=== PATIENT | female | born 1980 | race Caucasian/White ===

== ENCOUNTER 2018-07-26 03:35 | Inpatient (IN) | payer SELFPAY ==
[2018-07-26] MEDS ORDERED: NORMAL SALINE 1000 ML 1,000 ML IV ONE (03:52)
[2018-07-26] MEDS ORDERED: METOCLOPRAMIDE HCL INJ/PF 10 MG/2 ML SDV IV ONE (03:52)
[2018-07-26] MEDS ORDERED: PANTOPRAZOLE SODIUM 40 MG VIAL IV ONE (03:54)
--- NOTE | 2018-07-26 03:58 | ER Document Report ---
ED General - General Chief Complaint: General Weakness Stated Complaint: WEAKNESS Time Seen by Provider: 07/26/18 03:45 Notes: Patient is a 37-year-old female that comes to the emergency department for chief complaint of vomiting, weakness, and lightheadedness when she stands up. She denies passing out. She states that for the past week she has been unable to eat or drink anything. She reports generalized upper abdominal pain. She denies vomiting blood, blood in stool, abnormal bowel movements. She denies fever. Patient states she has chronic vomiting, Galicia's esophagus, has a yearly endoscopy, is on Protonix 40 mg daily. Patient states she has vomited almost daily for at least the past 6 months. She has had a cholecystectomy. Other medical history includes hypertension, anxiety, hypothyroidism. She smokes, drinks alcohol, reports some marijuana use. TRAVEL OUTSIDE OF THE [place] IN LAST 30 DAYS: No Past Medical History - General Information source: Patient - Social History Smoking Status: Current Every Day Smoker Frequency of alcohol use: Occasional Drug Abuse: Marijuana Lives with: Family Family History: Reviewed & Not Pertinent - Past Medical History Cardiac Medical History: Reports: Hx Hypertension Endocrine Medical History: Reports: Hx Hypothyroidism GI Medical History: Reports: Hx Gastroesophageal Reflux Disease - Galicia's esophagus Psychiatric Medical History: Reports: Hx Anxiety Past Surgical History: Reports: Hx Cholecystectomy Review of Systems - Review of Systems Constitutional: No symptoms reported EENT: No symptoms reported Cardiovascular: No symptoms reported Respiratory: No symptoms reported Gastrointestinal: See HPI Genitourinary: No symptoms reported Female Genitourinary: No symptoms reported Musculoskeletal: No symptoms reported Skin: No symptoms reported Hematologic/Lymphatic: No symptoms reported Neurological/Psychological: No symptoms reported Physical Exam - Notes Notes: GENERAL: Slightly sluggish but does not appear to be in any distress, still responsive and answers questions appropriately. HEAD: Normocephalic, atraumatic. EYES: Pupils equal, round, and reactive to light. Extraocular movements intact. ENT: Oral mucosa dry, tongue midline. Oropharynx unremarkable. Airway patent. Nares patent, no nasal septal hematoma, TM's intact. NECK: Full range of motion. Supple. Trachea midline. LUNGS: Clear to auscultation bilaterally, no wheezes, rales, or rhonchi. No respiratory distress. HEART: Regular rate and rhythm. No murmur ABDOMEN: Mild generalized upper abdominal tenderness, lower abdomen is benign. No guarding, rigidity, distention, rebound tenderness. GENITOURINARY: Deferred EXTREMITIES: Moves all 4 extremities spontaneously. No edema, normal radial and dorsalis pedis pulses bilaterally. No cyanosis. BACK: no cervical, thoracic, lumbar midline tenderness. No saddle anesthesia, normal distal neurovascular exam. NEUROLOGICAL: Alert and oriented x3. Normal speech. [cranial nerves II through XII grossly intact]. PSYCH: Flat affect. SKIN: Warm, dry, normal turgor. No rashes or lesions noted. Course - Re-evaluation Re-evalutation: Part of the patient's care was performed during [facility] downtime. Patient was initially hypotensive and was started on IV fluids, afterwards I obtained laboratory workup including severe hypokalemia with potassium of 1.8, hypomagnesemia with magnesium of 1, hyponatremia with sodium of 125. CBC shows mild leukocytosis with elevation of neutrophils but no bandemia. Patient has unremarkable abdominal exam, lipase and LFTs are unremarkable. She has already had a cholecystectomy. Her lack of ability to eat or drink is probably a combination of her substance abuse and Galicia's esophagus. Giving potassium and magnesium. Patient will need admission to the hospital for replacement of her electrolytes and potential management of her inability to tolerate food or water. I discussed this with patient at bedside. Discussed with Dr. Fisher. Discussed with Dr. Robertson, hospitalist, patient will be admitted to [facility] full admission. - Laboratory Result Diagrams: 07/26/18 03:48 07/26/18 03:48 Discharge - Discharge Clinical Impression: Hypokalemia, Hyponatremia, Hypomagnesemia Vomiting Qualifiers: Vomiting type: unspecified Vomiting Intractability: intractable Nausea presence : with nausea Qualified Code(s): R11.2 - Nausea with vomiting, unspecified Condition: Fair Disposition: ADMITTED INPATIENT Admitting Provider: Hospitalist Unit Admitted: [facility]
[2018-07-26] MEDS: MAGNESIUM SULFATE/D5W 1 GM/100 ML RTUPB IV SCH ×4 (05:40→17:03)
[2018-07-26] MEDS: POTASSI CL 20 MEQ/50 ML RIDER 20 MEQ/50 ML RTUPB IV SCH ×2 (05:40→09:00)
[2018-07-26 06:33] LABS: ABSOLUTE BASOPHILS # (AUTO) 0.1 10^3/uL (0.0-0.2); ABSOLUTE EOSINOPHILS # (AUTO) 0.1 10^3/uL (0.0-0.6); ABSOLUTE LYMPHOCYTES (AUTO) 2.4 10^3/uL (0.5-4.7); ABSOLUTE NEUT (AUTO) 11.4 10^3/uL (1.7-8.2); BASOPHILS % (AUTO) 0.5 % (0-2); EOSINOPHILS % (AUTO) 0.9 % (0-6); HEMATOCRIT 49.8 % (36.0-47.0); HEMOGLOBIN 17.5 g/dL (12.0-15.5); LYMPHOCYTES % (AUTO) 15.8 % (13-45); MEAN CORPUSCULAR HEMOGLOBIN 35.8 pg (27.0-33.4); MEAN CORPUSCULAR HGB CONC 35.1 g/dL (32.0-36.0); MEAN CORPUSCULAR VOLUME 102 fl (80-97); MONOCYTES % (AUTO) 6.4 % (3-13); PLATELET COUNT 210 10^3/uL (150-450); RED BLOOD COUNT 4.89 10^6/uL (3.72-5.28); RED CELL DISTRIBUTION WIDTH 16.6 % (11.5-14.0); SEGMENTED NEUTROPHILS % (AUTO) 76.4 % (42-78); TOTAL CELLS COUNTED % (AUTO) 100 %; WHITE BLOOD COUNT 14.9 10^3/uL (4.0-10.5)
[2018-07-26 06:38] LABS: ALANINE AMINOTRANSFERASE 71 U/L (9-52); ALBUMIN 3.6 g/dL (3.5-5.0); ALKALINE PHOSPHATASE 112 U/L (38-126); ANION GAP 19 (5-19); ASPARTATE AMINO TRANSFERASE 188 U/L (14-36); BILIRUBIN,DIRECT 0.6 mg/dL (0.0-0.4); BILIRUBIN,TOTAL 1.1 mg/dL (0.2-1.3); BLOOD UREA NITROGEN 18 mg/dL (7-20); CARBON DIOXIDE 37 mmol/L (22-30); CHLORIDE 70 mmol/L (98-107); GLUCOSE 92 mg/dL (75-110); LIPASE 102.6 U/L (23-300); SODIUM 126.1 mmol/L (137-145); TOTAL PROTEIN 6.9 g/dL (6.3-8.2)
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
[2018-07-26] MEDS ORDERED: PROMETHAZINE HCL INJ 25 MG/1 ML VIAL IV PRN (06:52)
[2018-07-26] MEDS ORDERED: ACETAMINOPHEN 650 MG SUPP.RECT PR PRN (06:52)
[2018-07-26] MEDS ORDERED: PROMETHAZINE HCL 25 MG SUPP.RECT PR PRN (06:52)
[2018-07-26] MEDS ORDERED: POTASSI CL 40 MEQ/NS 1L 1,000 ML IV PRN (06:52)
[2018-07-26] MEDS ORDERED: ACETAMINOPHEN 325 MG TABLET PO PRN (06:52)
[2018-07-26] MEDS ORDERED: NICOTINE 14 MG/24 HR PATCH.TD24 TD ONE ×2 (06:55→12:30)
[2018-07-26 07:11] LABS: APPEARANCE,URINE CLOUDY; BILIRUBIN,URINE NEGATIVE (NEGATIVE); COLOR,URINE AMBER; GLUCOSE, URINE NEGATIVE (NEGATIVE); KETONES,URINE NEGATIVE (NEGATIVE); LEUKOCYTE ESTERASE,URINE MODERATE (NEGATIVE); NITRITE,URINE NEGATIVE (NEGATIVE); PROTEIN,URINE NEGATIVE (NEGATIVE); URINE SPECIFIC GRAVITY 1.011
--- NOTE | 2018-07-26 07:11 | EKG REPORT ---
SEVERITY:- ABNORMAL ECG - SINUS RHYTHM INFERIOR Q WAVES, PROBABLY NORMAL VARIATION NONSPECIFIC T ABNORMALITIES, INFERIOR LEADS : Confirmed by: Mariama Garnett 26-Jul-2018 07:10:44
[2018-07-26 07:41] LABS: URINE AMPHETAMINES SCREEN NEGATIVE; URINE BARBITURATES SCREEN NEGATIVE; URINE BENZODIAZEPINES SCREEN NEGATIVE; URINE COCAINE SCREEN UNCONFIRMED POSITIVE; URINE MARIJUANA (THC) SCREEN NEGATIVE; URINE METHADONE SCREEN NEGATIVE; URINE PHENCYCLIDINE SCREEN NEGATIVE
[2018-07-26 07:46] LABS: ALCOHOL 30 mg/dL (NONE DETECTED)
[2018-07-26 07:47] LABS: POTASSIUM 1.8 mmol/L (3.6-5.0)
--- NOTE | 2018-07-26 08:14 | PDOC CONSULTATION ---
Consultation Consult Date: 07/26/18 Attending physician:: PERLA CONNELLY Consult reason:: nausea and vomiting History of Present Illness Admission Date/PCP: 07/26/18 07:24 History of Present Illness: OMAR POWER is a 37 year old female patient admitted thru the ED ? intractable nausea and vomiting multiple scopes history of GERD and Galicia's urine positive for cocaine, patient has history of marijuana use patient has electrolyte abnormalities patient likely dehydration, elevated Hgb ? cyclic vomiting syndrome since has had multiple scopes in past, repeating would be of little value would recommend conservative therapy with PPI, antiemetics and promotility would consider gastric emptying scan Past Medical History Cardiac Medical History: Reports: Hypertension Endocrine Medical History: Reports: Hypothyroidism - [facility] Medical History: Reports: Gastroesophageal Reflux Disease - Galicia's esophagus Psychiatric Medical History: Reports: Depression, General Anxiety Disorder Past Surgical History Past Surgical History: Reports: Cholecystectomy Social History Lives with: Family Smoking Status: Current Every Day Smoker - 8-10 cigarettes a day Frequency of Alcohol Use: Heavy - 3 glasses of rum a day Hx Recreational Drug Use: Yes Drugs: Marijuana, Other - Urine drug screen positive for methadone - Advance Directive Resuscitation Status: Full Code Family History Family History: Reviewed & Not Pertinent Parental Family History Reviewed: Yes Children Family History Reviewed: Unknown Sibling(s) Family History Reviewed.: Unknown Medication/Allergy Allergies/Adverse Reactions: lisinopril Allergy (Verified 07/26/18 07:11) Sulfa (Sulfonamide Antibiotics) Allergy (Verified 07/26/18 07:11) Review of Systems Constitutional: ABSENT: fever(s), headache(s), night sweats Eyes: ABSENT: visual disturbances Ears: ABSENT: hearing changes Nose, Mouth, and Throat: ABSENT: mouth pain Cardiovascular: ABSENT: orthropnea, palpitations Respiratory: ABSENT: dyspnea, hemoptysis Gastrointestinal: PRESENT: bloating. ABSENT: hematochezia, melena Genitourinary: ABSENT: dysuria, hematuria Musculoskeletal: ABSENT: deformity, joint swelling Integumentary: ABSENT: pruritus Neurological: ABSENT: syncope, tingling, tremor(s), vertigo Endocrine: ABSENT: polydipsia, polyphagia, polyuria Hematologic/Lymphatic: ABSENT: easy bruising Physical Exam Vital Signs: Temp Pulse Resp BP Pulse Ox 98.2 F 18 93/58 L 92 07/26/18 07:07 07/26/18 07:01 07/26/18 07:01 07/26/18 07:01 General appearance: PRESENT: mild distress Head exam: PRESENT: normocephalic Eye exam: PRESENT: EOMI, PERRLA. ABSENT: periorbital swelling, scleral icterus Mouth exam: PRESENT: moist, neck supple Throat exam: ABSENT: tonsillar exudate, tonsillogmegaly Neck exam: ABSENT: meningismus, tenderness, thyromegaly Respiratory exam: PRESENT: symmetrical, unlabored. ABSENT: tachypnea, wheezes Cardiovascular exam: PRESENT: +S1, +S2 GI/Abdominal exam: PRESENT: soft. ABSENT: rebound, rigid, tenderness Extremities exam: ABSENT: joint swelling Musculoskeletal exam: PRESENT: full ROM Neurological exam: PRESENT: oriented to time, oriented to situation, CN II-XII grossly intact Focused psych exam: ABSENT: restlessness Skin exam: PRESENT: normal color. ABSENT: mottled, pallor, urticaria, vesicles Assessment & Plan - Diagnosis (1) Intractable nausea and vomiting Is this a current diagnosis for this admission?: Yes Plan: ? cyclic vomiting syndrome has multiple EGD's in the past repeat exam would be of little value would recommend gastric emptying scan patient will need PPI, antiemetics and pro-motility agents correct electrolytes, potassium hydration will follow as needed, no plans for EGD for now get previous records - Time Time Spent: 50 to 70 Minutes
[2018-07-26 08:17] LABS: ANION GAP 14 (5-19); BLOOD UREA NITROGEN 17 mg/dL (7-20); CALCIUM 7.7 mg/dL (8.4-10.2); CARBON DIOXIDE 39 mmol/L (22-30); CHLORIDE 74 mmol/L (98-107); GLUCOSE 98 mg/dL (75-110); SODIUM 126.6 mmol/L (137-145)
[2018-07-26 08:22] LABS: POTASSIUM 1.9 mmol/L (3.6-5.0)
[2018-07-26] MEDS ORDERED: HYDRALAZINE HCL INJ/PF 20 MG/1 ML SDV IV PRN (08:42)
[2018-07-26 09:24] LABS: FREE T3 3.45 pg/mL (2.77-5.27); FREE T4 (FREE THYROXINE) 1.33 ng/dL (0.78-2.19)
[2018-07-26 09:37] LABS: THYROID STIMULATING HORMONE 1.93 uIU/mL (0.47-4.68)
[2018-07-26] MEDS: METOCLOPRAMIDE HCL INJ/PF 10 MG/2 ML SDV IV SCH ×3 (11:26→18:14)
[2018-07-26] MEDS: PANTOPRAZOLE SODIUM 40 MG VIAL IV SCH ×2 (11:34→21:21)
[2018-07-26 12:55] LABS: ANION GAP 14 (5-19); BLOOD UREA NITROGEN 17 mg/dL (7-20); CALCIUM 7.4 mg/dL (8.4-10.2); CARBON DIOXIDE 38 mmol/L (22-30); CHLORIDE 77 mmol/L (98-107); GLUCOSE 93 mg/dL (75-110); SODIUM 128.7 mmol/L (137-145)
[2018-07-26] MEDS: HEPARIN SOD (PORCINE) 5,000 UNIT/ML 1 ML SYRINGE SUBCUT SCH ×2 (13:25→21:20)
--- NOTE | 2018-07-26 14:16 | PDOC PROGRESS REPORT ---
Subjective Progress Note for:: 07/26/18 Subjective:: OMAR POWER is a 37 year old female who presented to the emergency room with a 2-year history of episodic intractable nausea and vomiting. She admitted to numerous, multi-week long episodes of intractable nausea and vomiting resulting in multiple hospitalizations and multiple emergency room visits. She rated her nausea and vomiting as severe at the time of her emergency room visit. Her nausea and vomiting has been accompanied by severe, nonradiating, aching and cramping epigastric abdominal pain as well as retching. Additionally she has intermittent severe (10/10) burning central chest pain which is similar to prior pains that she has had with her Galicia's esophagus and gastroesophageal reflux disorder. She had not identified any ameliorating factors for her nausea, vomiting, abdominal pain or chest pain. She also added an associated symptoms of orthostatic dizziness for the last 1-2 weeks. She further admitted that she has not been able to successfully eat or drink for the last week to 10 days. She added that she usually drinks 3 or 4 glasses of rum every day and smokes marijuana on a frequent basis but has not done so for the last month. She smokes cigarettes on a daily basis. In the emergency room she was found to have a potassium 1.84 and a magnesium of 1.08 and was subsequently admitted to the IMCU for correction of her electrolyte abnormalities and further evaluation and treatment. Reason For Visit: SEVERE HYPOKALEMIA,SCUTE RENAL FAILURE, TRACTABLE Physical Exam Vital Signs: Temp Pulse Resp BP Pulse Ox 98.2 F 59 L 18 88/52 L 96 07/26/18 08:23 07/26/18 08:23 07/26/18 08:23 07/26/18 08:23 07/26/18 08:23 Intake & Output 07/24/18 07/25/18 07/26/18 23:59 23:59 23:59 Weight 71.3 kg General appearance: PRESENT: no acute distress, cooperative Head exam: PRESENT: atraumatic, normocephalic Eye exam: PRESENT: conjunctiva pink, EOMI Ear exam: PRESENT: normal external ear exam. ABSENT: drainage Mouth exam: PRESENT: neck supple, tongue midline Neck exam: ABSENT: thyromegaly, tracheal deviation Respiratory exam: PRESENT: clear to auscultation adelaida, symmetrical, unlabored Cardiovascular exam: PRESENT: RRR. ABSENT: clicks, gallop, rubs Vascular exam: PRESENT: normal capillary refill. ABSENT: pallor GI/Abdominal exam: PRESENT: normal bowel sounds, soft Rectal exam: PRESENT: deferred Extremities exam: ABSENT: joint swelling, pedal edema Musculoskeletal exam: PRESENT: ambulatory, full ROM, normal inspection Neurological exam: PRESENT: alert, oriented to person, oriented to place, oriented to time, oriented to situation, CN II-XII grossly intact. ABSENT: motor sensory deficit Psychiatric exam: PRESENT: appropriate affect, normal mood Skin exam: ABSENT: jaundice, rash Results Laboratory Results: 07/26/18 07:50 07/26/18 07:50 Sodium 126.6 L Potassium 1.9 L* Chloride 74 L Carbon Dioxide 39 H Anion Gap 14 BUN 17 Creatinine 1.32 H Est GFR ( Amer) 54 L Est GFR (Non-Af Amer) 45 L Glucose 98 Calcium 7.7 L Assessment & Plan - Diagnosis (1) Hypokalemia Is this a current diagnosis for this admission?: Yes Plan: Patient's initial potassium was 1.8 and potassium repletion with IV replacement was initiated. Ongoing IV and oral repletion will continue until potassium levels are back to or near normal. Serial basic metabolic profiles will be obtained to evaluate the effectiveness of therapy. (2) Intractable nausea and vomiting Is this a current diagnosis for this admission?: Yes Plan: Patient presented with intractable nausea and vomiting and a history that would indicate that she most likely has cyclic vomiting. He is currently being treated with Reglan for control of her cyclic nausea vomiting with good success. This will be continued as her diet is increased and then her treatment will be converted to oral therapy. (3) Hypomagnesemia Is this a current diagnosis for this admission?: Yes Plan: Initial magnesium level was 1.08 and magnesium repletion was undertaken with intravenous magnesium sulfate. Magnesium levels will be followed closely and further repletion will be accomplished as required. (4) Hyponatremia Is this a current diagnosis for this admission?: Yes Plan: Patient's initial sodium was in the low 120s and if his gradually improved with electrolyte therapy. Electrolyte therapy will be continued and serial measurement of her basic metabolic profile will be following to determine effect of therapy. (5) Acute renal failure Qualifiers: Acute renal failure type: unspecified Qualified Code(s): N17.9 - Acute kidney failure, unspecified Is this a current diagnosis for this admission?: Yes Plan: Patient had a creatinine of 1.3 on admission and will be treated with IV fluids and electrolytes. Her renal functions will be assessed on a regular basis to evaluate her therapeutic response to correction of her electrolyte deficiencies. (6) Tobacco dependence Is this a current diagnosis for this admission?: Yes Plan: Patient smokes approximately 1/2 pack of cigarettes per day on a regular basis and will be on a nicotine 14 mg patch change daily here in the hospital if she so desires. Smoking cessation is counseled however this time patient has no sincere interest in quitting. - Time Time Spent with patient: 15-24 minutes Smoking Cessation Education: 3 to 10 minutes Medications reviewed and adjusted accordingly: Yes Anticipated discharge: Home Within: within 72 hours - Inpatient Certification Based on my medical assessment, after consideration of the patient's comorbidities, presenting symptoms, or acuity I expect that the services needed warrant INPATIENT care.: Yes I certify that my determination is in accordance with my understanding of Medicare's requirements for reasonable and necessary INPATIENT services [42 CFR 412.3e].: Yes Medical Necessity: Need Close Monitoring Due to Risk of Patient Decompensation, Need For IV Fluids, Need For Continuous Telemetry Monitoring, Risk of Complication if Not Cared For in Hospital
[2018-07-26] MEDS ORDERED: NICOTINE 21 MG/24 HR PATCH.TD24 TD PRN (14:31)
[2018-07-26 16:35] LABS: ANION GAP 14 (5-19); BLOOD UREA NITROGEN 17 mg/dL (7-20); CALCIUM 7.6 mg/dL (8.4-10.2); CARBON DIOXIDE 34 mmol/L (22-30); CHLORIDE 80 mmol/L (98-107); GLUCOSE 101 mg/dL (75-110); SODIUM 127.9 mmol/L (137-145)
[2018-07-26 16:44] LABS: POTASSIUM 2.3 mmol/L (3.6-5.0)
[2018-07-26] MEDS: POTASSIUM CHLORIDE 10 MEQ CAPSULE.ER PO SCH (17:04)
[2018-07-26] MEDS: MAGNESIUM OXIDE 400 MG TABLET PO SCH (17:04)
[2018-07-26 20:56] LABS: ANION GAP 14 (5-19); BLOOD UREA NITROGEN 18 mg/dL (7-20); CALCIUM 7.4 mg/dL (8.4-10.2); CARBON DIOXIDE 33 mmol/L (22-30); CHLORIDE 81 mmol/L (98-107); GLUCOSE 105 mg/dL (75-110); SODIUM 128.2 mmol/L (137-145)
[2018-07-26 21:06] LABS: POTASSIUM 2.8 mmol/L (3.6-5.0)
[2018-07-26] MEDS: POTASSI CL 40 MEQ/NS 1L 1,000 ML IV PRN (21:21)
[2018-07-26] MEDS: LORAZEPAM 1 MG TABLET PO PRN (21:21)
[2018-07-26 22:41] LABS: POTASSIUM 2.6 mmol/L (3.6-5.0)
[2018-07-27] MEDS: METOCLOPRAMIDE HCL INJ/PF 10 MG/2 ML SDV IV SCH ×3 (00:28→12:47)
[2018-07-27 02:31] LABS: POTASSIUM 2.6 mmol/L (3.6-5.0)
[2018-07-27] MEDS: POTASSI CL 40 MEQ/NS 1L 1,000 ML IV PRN ×2 (04:44→12:47)
[2018-07-27] MEDS: LEVOTHYROXINE SODIUM 0.112 MG TABLET PO SCH (06:00)
[2018-07-27] MEDS: HEPARIN SOD (PORCINE) 5,000 UNIT/ML 1 ML SYRINGE SUBCUT SCH ×3 (06:00→21:21)
[2018-07-27] MEDS: MAGNESIUM OXIDE 400 MG TABLET PO SCH ×2 (08:26→12:11)
--- NOTE | 2018-07-27 08:56 | EKG REPORT ---
SEVERITY:- BORDERLINE ECG - SINUS RHYTHM BORDERLINE PROLONGED QT INTERVAL : Confirmed by: Mariama Garnett 27-Jul-2018 08:55:08
[2018-07-27] MEDS ORDERED: PROMETHAZINE HCL INJ 25 MG/1 ML VIAL IV PRN (09:00)
[2018-07-27] MEDS: PANTOPRAZOLE SODIUM 40 MG VIAL IV SCH (09:18)
[2018-07-27] MEDS: POTASSIUM CHLORIDE 10 MEQ CAPSULE.ER PO SCH ×3 (09:18→17:54)
[2018-07-27] MEDS: VENLAFAXINE HCL 75 MG CAP.SR.24H PO SCH (09:20)
[2018-07-27] MEDS ORDERED: NORETHINDRONE 0.35 MG PO SCH (10:00)
[2018-07-27] MEDS ORDERED: LOSARTAN POTASSIUM 50 MG TABLET PO SCH (10:00)
[2018-07-27 10:51] LABS: POTASSIUM 3.6 mmol/L (3.6-5.0)
[2018-07-27 14:31] LABS: POTASSIUM 3.5 mmol/L (3.6-5.0)
[2018-07-27] MEDS: METOCLOPRAMIDE HCL 10 MG TABLET PO SCH ×2 (17:53→21:20)
[2018-07-27] MEDS: SUCRALFATE SUSP 1 GM/10 ML UDCUP PO SCH ×2 (17:53→21:21)
[2018-07-27] MEDS: LANSOPRAZOLE 30 MG TAB.RAP.DR PO SCH (17:53)
--- NOTE | 2018-07-27 17:59 | PDOC PROGRESS REPORT ---
Subjective Progress Note for:: 07/27/18 Subjective:: NUHA POWER is a 37 year old female who presented to the emergency room with a 2-year history of episodic intractable nausea and vomiting. She admitted to numerous, multi-week long episodes of intractable nausea and vomiting resulting in multiple hospitalizations and multiple emergency room visits. She rated her nausea and vomiting as severe at the time of her emergency room visit. Her nausea and vomiting has been accompanied by severe, nonradiating, aching and cramping epigastric abdominal pain as well as retching. Additionally she has intermittent severe (/) burning central chest pain which is similar to prior pains that she has had with her [place]'s esophagus and gastroesophageal reflux disorder. She had not identified any ameliorating factors for her nausea, vomiting, abdominal pain or chest pain. She also added an associated symptoms of orthostatic dizziness for the last 1-2 weeks. She further admitted that she has not been able to successfully eat or drink for the last week to 10 days. She added that she usually drinks 3 or 4 glasses of rum every day and smokes marijuana on a frequent basis but has not done so for the last month. She smokes cigarettes on a daily basis. In the emergency room she was found to have a potassium 1.84 and a magnesium of 1.08 and was subsequently admitted to the [facility] for correction of her electrolyte abnormalities and further evaluation and treatment. 07/27/2018: Nuha is responded well to intravenous and oral supplementation of her electrolyte deficiencies. She states she is feeling much better and would like to consider going home tomorrow if possible. Her nausea and vomiting have been well controlled and her abdominal pain has resolved. She denies further chest pain and has been tolerating oral diet very well. She has had no dizziness on getting out of bed with activity. We have discussed converting all of her therapeutic agents to those which can be taken on an outpatient basis today and then consider discharge tomorrow if she continues to do well. Reason For Visit: SEVERE HYPOKALEMIA, AND HYPOMAGNESEMIA Physical Exam Vital Signs: Temp Pulse Resp BP Pulse Ox 97.4 F 94 16 117/81 97 07/27/18 15:19 07/27/18 15:19 07/27/18 15:19 07/27/18 15:19 07/27/18 15:19 Intake & Output 07/25/18 07/26/18 07/27/18 23:59 23:59 23:59 Intake Total 1896 3301 Balance 189 3301 Weight 76.2 kg General appearance: PRESENT: no acute distress, cooperative Head exam: PRESENT: atraumatic, normocephalic Eye exam: PRESENT: conjunctiva pink, EOMI Ear exam: PRESENT: normal external ear exam. ABSENT: drainage Mouth exam: PRESENT: neck supple, tongue midline Neck exam: ABSENT: thyromegaly, tracheal deviation Respiratory exam: PRESENT: clear to auscultation adelaida, symmetrical, unlabored Cardiovascular exam: PRESENT: RRR. ABSENT: clicks, gallop, rubs Vascular exam: PRESENT: normal capillary refill. ABSENT: pallor GI/Abdominal exam: PRESENT: normal bowel sounds, soft Rectal exam: PRESENT: deferred Extremities exam: ABSENT: joint swelling, pedal edema Musculoskeletal exam: PRESENT: full ROM, normal inspection Neurological exam: PRESENT: alert, oriented to person, oriented to place, oriented to time, oriented to situation, CN II-XII grossly intact. ABSENT: motor sensory deficit Psychiatric exam: PRESENT: appropriate affect, normal mood Skin exam: PRESENT: dry, intact, warm Results Laboratory Results: 07/27/18 13:49 07/26/18 07/26/18 07/27/18 20:05 22:08 02:03 Sodium 128.2 L Potassium 2.8 L* 2.6 L* 2.6 L* Chloride 81 L Carbon Dioxide 33 H Anion Gap 14 BUN 18 Creatinine 1.28 H Est GFR ( Amer) 56 L Est GFR (Non-Af Amer) 46 L Glucose 105 Calcium 7.4 L Magnesium 2.8 H 2.5 H 2.7 H 07/27/18 07/27/18 07/27/18 05:48 09:53 13:49 Sodium Potassium 3.0 L* 3.6 3.5 L Chloride Carbon Dioxide Anion Gap BUN Creatinine Est GFR ( Amer) Est GFR (Non-Af Amer) Glucose Calcium Magnesium 2.7 H 2.7 H 2.2 Assessment & Plan - Diagnosis (1) Hypokalemia Is this a current diagnosis for this admission?: Yes Plan: Patient's initial potassium was 1.8 and potassium repletion with IV replacement was initiated. Ongoing IV and oral repletion will continue until potassium levels are back to or near normal. Serial basic metabolic profiles will be obtained to evaluate the effectiveness of therapy. 07/27/2018: Patient's potassium is up to 3.5 this afternoon. She will be using all oral potassium supplement therapy at home after discharge. Her medications will be converted to the oral forms only today and she will have another potassium level checked in the morning to reassess oral therapy. (2) Intractable nausea and vomiting Is this a current diagnosis for this admission?: Yes Plan: Patient presented with intractable nausea and vomiting and a history that would indicate that she most likely has cyclic vomiting. He is currently being treated with Reglan for control of her cyclic nausea vomiting with good success. This will be continued as her diet is increased and then her treatment will be converted to oral therapy. 07/27/2018: The patient's intractable nausea and vomiting have been well controlled utilizing IV Reglan as therapy for cyclic vomiting. Conversion from IV to oral Reglan will be accomplished today. She will be continued on oral Reglan as part of her therapeutic regimen upon discharge. (3) Hypomagnesemia Is this a current diagnosis for this admission?: Yes Plan: Initial magnesium level was 1.08 and magnesium repletion was undertaken with intravenous magnesium sulfate. Magnesium levels will be followed closely and further repletion will be accomplished as required. 07/27/2018: Patient's magnesium level is actually above the normal range on today's evaluation. Supplemental magnesium has been discontinued at this time. (4) Hyponatremia Is this a current diagnosis for this admission?: Yes Plan: Patient's initial sodium was in the low 120s and it has gradually improved with electrolyte therapy. Electrolyte therapy will be continued and serial measurement of her basic metabolic profile will be following to determine effect of therapy. 07/27/2018: Patient's serum sodium is now greater than 128 and it will be reassessed again in the morning. No further specific treatment for repletion of sodium will be performed as with a regular diet her sodium should return to a normal value without additional sodium supplementation. (5) Acute renal failure Qualifiers: Acute renal failure type: unspecified Qualified Code(s): N17.9 - Acute kidney failure, unspecified Is this a current diagnosis for this admission?: Yes Plan: Patient had a creatinine of 1.48 on admission and will be treated with IV fluids and electrolytes. Her renal functions will be assessed on a regular basis to evaluate her therapeutic response to correction of her electrolyte deficiencies. 07/27/2018: Patient's serum creatinine level has achieved its equilibrium point at approximately 1.3. Another assessment will be done prior to the patient's likely discharge tomorrow morning. (6) Tobacco dependence Is this a current diagnosis for this admission?: Yes Plan: Patient smokes approximately 1/2 pack of cigarettes per day on a regular basis and will be on a nicotine 14 mg patch change daily here in the hospital if she so desires. Smoking cessation is counseled however this time patient has no sincere interest in quitting. - Time Time Spent with patient: 15-24 minutes Smoking Cessation Education: 3 to 10 minutes Medications reviewed and adjusted accordingly: Yes Anticipated discharge: Home Within: within 24 hours
[2018-07-27] MEDS: LORAZEPAM 1 MG TABLET PO PRN (21:20)
[2018-07-28] MEDS: LANSOPRAZOLE 30 MG TAB.RAP.DR PO SCH (05:13)
[2018-07-28] MEDS: HEPARIN SOD (PORCINE) 5,000 UNIT/ML 1 ML SYRINGE SUBCUT SCH (05:13)
[2018-07-28] MEDS: LEVOTHYROXINE SODIUM 0.112 MG TABLET PO SCH (05:13)
[2018-07-28 05:45] LABS: ABSOLUTE BASOPHILS # (AUTO) 0.1 10^3/uL (0.0-0.2); ABSOLUTE EOSINOPHILS # (AUTO) 0.1 10^3/uL (0.0-0.6); ABSOLUTE LYMPHOCYTES (AUTO) 2.4 10^3/uL (0.5-4.7); ABSOLUTE MONOCYTES (AUTO) 0.6 10^3/uL (0.1-1.4); ABSOLUTE NEUT (AUTO) 5.7 10^3/uL (1.7-8.2); BASOPHILS % (AUTO) 0.8 % (0-2); EOSINOPHILS % (AUTO) 1.4 % (0-6); HEMATOCRIT 41.3 % (36.0-47.0); LYMPHOCYTES % (AUTO) 27.3 % (13-45); MEAN CORPUSCULAR HEMOGLOBIN 36.2 pg (27.0-33.4); MEAN CORPUSCULAR HGB CONC 34.8 g/dL (32.0-36.0); MEAN CORPUSCULAR VOLUME 104 fl (80-97); MONOCYTES % (AUTO) 6.8 % (3-13); PLATELET COUNT 163 10^3/uL (150-450); RED BLOOD COUNT 3.96 10^6/uL (3.72-5.28); RED CELL DISTRIBUTION WIDTH 16.2 % (11.5-14.0); SEGMENTED NEUTROPHILS % (AUTO) 63.7 % (42-78); TOTAL CELLS COUNTED % (AUTO) 100 %
[2018-07-28 06:06] LABS: ALANINE AMINOTRANSFERASE 40 U/L (9-52); ALBUMIN 2.4 g/dL (3.5-5.0); ALKALINE PHOSPHATASE 93 U/L (38-126); AMYLASE 46 U/L (30-110); ANION GAP 6 (5-19); ASPARTATE AMINO TRANSFERASE 57 U/L (14-36); BILIRUBIN,DIRECT 0.3 mg/dL (0.0-0.4); BILIRUBIN,TOTAL 0.5 mg/dL (0.2-1.3); BLOOD UREA NITROGEN 11 mg/dL (7-20); CALCIUM 8.5 mg/dL (8.4-10.2); CARBON DIOXIDE 33 mmol/L (22-30); CHLORIDE 98 mmol/L (98-107); CHOLESTEROL 135.88 mg/dL (0-200); GLUCOSE 73 mg/dL (75-110); LIPASE 176.9 U/L (23-300); SODIUM 137.2 mmol/L (137-145); TRIGLYCERIDES 100 mg/dL (<150)
[2018-07-28 06:16] LABS: HEMOGLOBIN 14.3 g/dL (12.0-15.5)
[2018-07-28 06:17] LABS: DIRECT LDL 103 mg/dL (<100)
[2018-07-28 06:22] LABS: FREE T3 2.56 pg/mL (2.77-5.27); FREE T4 (FREE THYROXINE) 0.99 ng/dL (0.78-2.19)
[2018-07-28 06:36] LABS: THYROID STIMULATING HORMONE 2.55 uIU/mL (0.47-4.68)
[2018-07-28] MEDS: METOCLOPRAMIDE HCL 10 MG TABLET PO SCH ×2 (08:36→10:41)
[2018-07-28] MEDS: POTASSIUM CHLORIDE 10 MEQ CAPSULE.ER PO SCH (08:37)
[2018-07-28] MEDS: SUCRALFATE SUSP 1 GM/10 ML UDCUP PO SCH ×2 (08:37→10:40)
[2018-07-28] MEDS ORDERED: LOSARTAN POTASSIUM 50 MG TABLET PO SCH (10:00)
[2018-07-28] MEDS: VENLAFAXINE HCL 75 MG CAP.SR.24H PO SCH (10:41)
[2018-07-28 12:02] VITALS: BP 130/97
--- NOTE | 2018-07-28 13:22 | PDOC DISCHARGE SUMMARY ---
General - Admit/Disc Date/PCP Admission Date/Primary Care Provider: 07/26/18 09:13 Discharge Date: 07/28/18 - Discharge Diagnosis (1) Hypokalemia Is this a current diagnosis for this admission?: Yes Summary: Patient's initial potassium was 1.8 and potassium repletion with IV replacement was initiated. Ongoing IV and oral repletion will continue until potassium levels are back to or near normal. Serial basic metabolic profiles will be obtained to evaluate the effectiveness of therapy. 07/27/2018: Patient's potassium is up to 3.5 this afternoon. She will be using all oral potassium supplement therapy at home after discharge. Her medications will be converted to the oral forms only today and she will have another potassium level checked in the morning to reassess oral therapy. 07/28/2018: Patient's potassium is 4.0 and her serum sodium has returned to normal. Plans for discharge are made for today, no further supplemental therapy will be provided at this point. (2) Intractable nausea and vomiting Is this a current diagnosis for this admission?: Yes Summary: Patient presented with intractable nausea and vomiting and a history that would indicate that she most likely has cyclic vomiting. He is currently being treated with Reglan for control of her cyclic nausea vomiting with good success. This will be continued as her diet is increased and then her treatment will be converted to oral therapy. 07/27/2018: The patient's intractable nausea and vomiting have been well controlled utilizing IV Reglan as therapy for cyclic vomiting. Conversion from IV to oral Reglan will be accomplished today. She will be continued on oral Reglan as part of her therapeutic regimen upon discharge. (3) Hypomagnesemia Is this a current diagnosis for this admission?: Yes Summary: Initial magnesium level was 1.08 and magnesium repletion was undertaken with intravenous magnesium sulfate. Magnesium levels will be followed closely and further repletion will be accomplished as required. 07/27/2018: Patient's magnesium level is actually above the normal range on today's evaluation. Supplemental magnesium has been discontinued at this time. (4) Hyponatremia Is this a current diagnosis for this admission?: Yes Summary: Patient's initial sodium was in the low 120s and it has gradually improved with electrolyte therapy. Electrolyte therapy will be continued and serial measurement of her basic metabolic profile will be following to determine effect of therapy. 07/27/2018: Patient's serum sodium is now greater than 128 and it will be reassessed again in the morning. No further specific treatment for repletion of sodium will be performed as with a regular diet her sodium should return to a normal value without additional sodium supplementation. 07/28/2018: Nuha's serum sodium is now back to normal at 137. She will be discharged today with no further sodium supplementation. (5) Acute renal failure Is this a current diagnosis for this admission?: Yes Summary: Patient had a creatinine of 1.48 on admission and will be treated with IV fluids and electrolytes. Her renal functions will be assessed on a regular basis to evaluate her therapeutic response to correction of her electrolyte deficiencies. 07/27/2018: Patient's serum creatinine level has achieved its equilibrium point at approximately 1.3. Another assessment will be done prior to the patient's likely discharge tomorrow morning. 07/28/2018: Patient serum creatinine has dropped to 0.75 today prior to discharge. No further specific therapy will be provided. (6) Tobacco dependence Is this a current diagnosis for this admission?: Yes Summary: Patient smokes approximately 1/2 pack of cigarettes per day on a regular basis and will be on a nicotine 14 mg patch change daily here in the hospital if she so desires. Smoking cessation is counseled however this time patient has no sincere interest in quitting. - Additional Information Resuscitation Status: Full Code Discharge Diet: As Tolerated, Cardiac Discharge Activity: Activity As Tolerated, Walk Frequently Prescriptions: Esomeprazole Magnesium 40 mg PO DAILY 30 Days #30 capsule. Metoclopramide HCl [Reglan 10 mg Tablet] 10 mg PO ACHS 30 Days #120 tablet Sucralfate [Carafate 1 gm Tablet] 1 gm PO ACHS #120 tablet Home Medications: Levothyroxine Sodium [Levoxyl] 112 mcg PO Q6AM 07/26/18 Lorazepam [Ativan 1 mg Tablet] 1 mg PO Q8HP PRN 07/26/18 Losartan Potassium [Cozaar 100 mg Tablet] 100 mg PO DAILY 07/26/18 Norethindrone [Sherri] 0.35 mg PO DAILY 07/26/18 Ondansetron HCl [Zofran 4 mg Tablet] 4 mg PO Q8 07/26/18 Venlafaxine HCl [Venlafaxine HCl ER] 150 mg PO DAILY 11/14/18 Esomeprazole Magnesium 40 mg PO DAILY 30 Days #30 capsule. 07/28/18 Metoclopramide HCl [Reglan 10 mg Tablet] 10 mg PO ACHS 30 Days #120 tablet 07/28 Sucralfate [Carafate 1 gm Tablet] 1 gm PO ACHS #120 tablet 07/28/18 History of Present Illness Patient complains of: Generalized weakness History of Present Illness: NUHA POWER is a 37 year old female who presented to the emergency room with a 2-year history of episodic intractable nausea and vomiting. She admitted to numerous, multi-week long episodes of intractable nausea and vomiting resulting in multiple hospitalizations and multiple emergency room visits. She rated her nausea and vomiting as severe at the time of her emergency room visit. Her nausea and vomiting has been accompanied by severe, nonradiating, aching and cramping epigastric abdominal pain as well as retching. Additionally she has intermittent severe (10/10) burning central chest pain which is similar to prior pains that she has had with her [place]'s esophagus and gastroesophageal reflux disorder. She had not identified any ameliorating factors for her nausea, vomiting, abdominal pain or chest pain. She also added an associated symptoms of orthostatic dizziness for the last 1-2 weeks. She further admitted that she has not been able to successfully eat or drink for the last week to 10 days. She added that she usually drinks 3 or 4 glasses of rum every day and smokes marijuana on a frequent basis but has not done so for the last month. She smokes cigarettes on a daily basis. In the emergency room she was found to have a potassium 1.84 and a magnesium of 1.08 and was subsequently admitted to the [facility] for correction of her electrolyte abnormalities and further evaluation and treatment. Hospital Course Hospital Course: 07/27/2018: Nuha is responded well to intravenous and oral supplementation of her electrolyte deficiencies. She states she is feeling much better and would like to consider going home tomorrow if possible. Her nausea and vomiting have been well controlled and her abdominal pain has resolved. She denies further chest pain and has been tolerating oral diet very well. She has had no dizziness on getting out of bed with activity. We have discussed converting all of her therapeutic agents to those which can be taken on an outpatient basis today and then consider discharge tomorrow if she continues to do well. 07/28/2018: Nuha continues to do very well with her electrolytes having improved to normal overnight on oral therapy. She is feeling quite well with no nausea or vomiting and is been tolerating her oral diet very well. She is not had diarrhea, increased flatulence or dyspepsia. Her esophagitis symptoms have resolved with therapy and she is feeling well and would like to be discharged today if possible. After discussion about her medications and being able to obtain and financially I have located and printed a discount prescription form to obtain generic Nexium for $17.67 for a 30 count bottle at [facility]. This will be provide her along with a prescriptions for esomeprazole, metoclopramide and sucralfate. Patient will be discharged home in improved and stable condition this afternoon. Physical Exam Vital Signs: Temp Pulse Resp BP Pulse Ox 98.2 F 94 19 130/97 H 100 07/28/18 11:53 07/28/18 11:53 07/28/18 11:53 07/28/18 11:53 07/28/18 11:53 Intake & Output 07/26/18 07/27/18 07/28/18 23:59 23:59 23:59 Intake Total 1897 4701 2012 Balance 1897 4701 2012 Weight 76.2 kg 76.9 kg General appearance: PRESENT: no acute distress, cooperative Head exam: PRESENT: atraumatic, normocephalic Eye exam: PRESENT: conjunctiva pink, EOMI Ear exam: PRESENT: normal external ear exam Mouth exam: PRESENT: neck supple Respiratory exam: PRESENT: clear to auscultation adelaida, symmetrical, unlabored Cardiovascular exam: PRESENT: RRR, other - No murmurs clicks gallops or rubs Vascular exam: PRESENT: normal capillary refill. ABSENT: pallor GI/Abdominal exam: PRESENT: normal bowel sounds, soft Rectal exam: PRESENT: deferred Extremities exam: ABSENT: joint swelling, pedal edema Musculoskeletal exam: PRESENT: full ROM, normal inspection Neurological exam: PRESENT: alert, oriented to person, oriented to place, oriented to time, oriented to situation Psychiatric exam: PRESENT: appropriate affect, normal mood Skin exam: PRESENT: dry, intact, warm - [id number] Results Laboratory Results: 07/28/18 05:15 07/28/18 05:15 07/27/18 07/28/18 07/28/18 13:49 05:15 05:15 WBC 9.0 RBC 3.96 Hgb 14.3 D Hct 41.3 MCV 104 H MCH 36.2 H MCHC 34.8 RDW 16.2 H Plt Count 163 Seg Neutrophils % 63.7 Lymphocytes % 27.3 Monocytes % 6.8 Eosinophils % 1.4 Basophils % 0.8 Absolute Neutrophils 5.7 Absolute Lymphocytes 2.4 Absolute Monocytes 0.6 Absolute Eosinophils 0.1 Absolute Basophils 0.1 Sodium 137.2 Potassium 3.5 L 4.0 Chloride 98 Carbon Dioxide 33 H Anion Gap 6 BUN 11 Creatinine 0.75 Est GFR ( Amer) > 60 Est GFR (Non-Af Amer) > 60 Glucose 73 L Calcium 8.5 Magnesium 2.2 1.8 Total Bilirubin 0.5 AST 57 H ALT 40 Alkaline Phosphatase 93 Total Protein 5.0 L Albumin 2.4 L Triglycerides 100 Cholesterol 135.88 LDL Cholesterol Direct 103 H VLDL Cholesterol 20.0 HDL Cholesterol 42 Amylase 46 Lipase 176.9 TSH Free T4 Free T3 pg/mL 07/28/18 05:15 WBC RBC Hgb Hct MCV MCH MCHC RDW Plt Count Seg Neutrophils % Lymphocytes % Monocytes % Eosinophils % Basophils % Absolute Neutrophils Absolute Lymphocytes Absolute Monocytes Absolute Eosinophils Absolute Basophils Sodium Potassium Chloride Carbon Dioxide Anion Gap BUN Creatinine Est GFR ( Amer) Est GFR (Non-Af Amer) Glucose Calcium Magnesium Total Bilirubin AST ALT Alkaline Phosphatase Total Protein Albumin Triglycerides Cholesterol LDL Cholesterol Direct VLDL Cholesterol HDL Cholesterol Amylase Lipase TSH 2.55 Free T4 0.99 Free T3 pg/mL 2.56 L Qualifiers - * PATIENT BEING DISCHARGED WITH ANY OF THE FOLLOWING DIAGNOSIS: No Plan Discharge Plan: Discharged home in improved and stable condition Time Spent: Greater than 30 Minutes
== END 2018-07-28 15:00 | disposition home or self-care (01) | DRG 641 ==
LOC: ER 03:35 → EH 07:24 → 3S 08:04 → OBSVTOIN 09:13
PROVIDERS: ADMIT Emergency Medicine; ATTEND Emergency Medicine
DX: E87.6 Hypokalemia (principal); N17.9 Acute kidney failure, unspecified; G43.A0 Cyclical vomiting, in migraine, not intractable; E83.42 Hypomagnesemia; E87.1 Hypo-osmolality and hyponatremia; K21.9 Gastro-esophageal reflux disease without esophagitis; I10 Essential (primary) hypertension; E06.3 Autoimmune thyroiditis; F32.9 Major depressive disorder, single episode, unspecified; F41.1 Generalized anxiety disorder; F10.20 Alcohol dependence, uncomplicated; E86.0 Dehydration; F17.210 Nicotine dependence, cigarettes, uncomplicated; K22.70 Barrett's esophagus without dysplasia; Z23 Encounter for immunization; Z79.899 Other long term (current) drug therapy; Z90.49 Acquired absence of other specified parts of digestive tract; Z88.2 Allergy status to sulfonamides; Z88.8 Allergy status to other drugs, medicaments and biological substances; Z80.0 Family history of malignant neoplasm of digestive organs
CPT/HCPCS: 36415; 80048; 80053; 80061; 80307; 81001; 82150; 83036; 83690; 83735; 84132; 84439; 84443; 84481; 84703; 85025; 90686; 93005; 93010; 96361; 96365; 96366; 96368; 96375; 99285; G0378; J1644; J2765; J3475; J3480; J3490; J7030; S0164

== ENCOUNTER 2018-08-01 15:13 | Observation (INO) | payer SELFPAY ==
[2018-08-01] MEDS ORDERED: NORMAL SALINE 1000 ML 1,000 ML IV ONE ×2 (15:56→17:16)
--- NOTE | 2018-08-01 15:56 | ER Document Report ---
ED Medical Screen (RME) - General Chief Complaint: Abdominal Pain Stated Complaint: ABDOMINAL PAIN, LEG PAIN Time Seen by Provider: 08/01/18 15:52 Notes: Patient is a 37-year-old female that presents to the emergency department for chief complaint of diarrhea, and lower extremity paresthesia. Patient was recently discharged from the ICU after having severe hyponatremia and hypokalemia from significant nausea and vomiting, since discharge, she was having tingling prior to discharge, is felt that is because she was in bed, but is seemingly progressed to have numbness and tingling, upper body which has concerned her. She is now having diarrhea over the last day and a half. ROS: Other than noted above, the 12 point review of systems was reviewed with the patient and were negative, all pertinent findings are included in the HPI. PHYSICAL EXAMINATION: Vital signs reviewed. GENERAL: Well-appearing, well-nourished and in no acute distress. HEAD: Atraumatic, normocephalic. EYES: Pupils equal round extraocular movements intact, conjunctiva are normal. ENT: Nares patent NECK: Normal range of motion CV: Heart rate tachycardic, regular rhythm LUNGS: No respiratory distress Musculoskeletal: Normal range of motion, on the right forearm, there is an area of erythema, where previous IV site was, consistent with superficial thrombophlebitis NEUROLOGICAL: Normal speech, sensation appears to be grossly intact distally in all extremities, however patient describes numbness and tingling sensation with palpation PSYCH: Normal mood, normal affect. MDM: Patient seen and examined for rapid initial assessment. Vital signs reviewed. A comprehensive ED assessment and evaluation of the patient, analysis of test results and completion of the medical decision making process will be conducted by additional ED providers. *Note is created using voice recognition software and may contain spelling, syntax or grammatical errors. TRAVEL OUTSIDE OF THE [place] IN LAST 30 DAYS: No - Related Data Allergies/Adverse Reactions: lisinopril Allergy (Verified 08/01/18 15:14) Sulfa (Sulfonamide Antibiotics) Allergy (Verified 08/01/18 15:14) Past Medical History - Past Medical History Cardiac Medical History: Reports: Hx Hypertension Endocrine Medical History: Reports: Hx Hypothyroidism - [facility]/ Medical History: Denies: Hx Peritoneal Dialysis GI Medical History: Reports: Hx Gastroesophageal Reflux Disease - [place]'s esophagus Psychiatric Medical History: Reports: Hx Anxiety, Hx Depression Past Surgical History: Reports: Hx Cholecystectomy Physical Exam - Vital signs Vitals: Temp Pulse Resp BP Pulse Ox 98.6 F 115 H 18 126/87 H 99 08/01/18 15:24 08/01/18 15:24 08/01/18 15:24 08/01/18 15:24 08/01/18 15:24 Course - Vital Signs Vital signs: Temp Pulse Resp BP Pulse Ox 98.6 F 115 H 18 126/87 H 99 08/01/18 15:24 08/01/18 15:24 08/01/18 15:24 08/01/18 15:24 08/01/18 15:24
[2018-08-01] MEDS ORDERED: ONDANSETRON HCL INJ/PF 4 MG/2 ML SDV IV ONE (15:57)
[2018-08-01 16:30] LABS: AMORPHOUS SEDIMENT,URINE TRACE /HPF; APPEARANCE,URINE CLOUDY; BILIRUBIN,URINE NEGATIVE (NEGATIVE); COLOR,URINE YELLOW; GLUCOSE, URINE NEGATIVE (NEGATIVE); KETONES,URINE NEGATIVE (NEGATIVE); LEUKOCYTE ESTERASE,URINE LARGE (NEGATIVE); NITRITE,URINE POSITIVE (NEGATIVE); PROTEIN,URINE 100 mg/dL (NEGATIVE); URINE SPECIFIC GRAVITY 1.009; UROBILINOGEN,URINE NEGATIVE mg/dL (<2.0)
[2018-08-01 16:32] LABS: ABSOLUTE BASOPHILS # (AUTO) 0.1 10^3/uL (0.0-0.2); ABSOLUTE EOSINOPHILS # (AUTO) 0.1 10^3/uL (0.0-0.6); ABSOLUTE LYMPHOCYTES (AUTO) 1.6 10^3/uL (0.5-4.7); ABSOLUTE MONOCYTES (AUTO) 1.4 10^3/uL (0.1-1.4); ABSOLUTE NEUT (AUTO) 16.6 10^3/uL (1.7-8.2); BASOPHILS % (AUTO) 0.3 % (0-2); EOSINOPHILS % (AUTO) 0.5 % (0-6); HEMATOCRIT 46.9 % (36.0-47.0); MEAN CORPUSCULAR HEMOGLOBIN 35.8 pg (27.0-33.4); MEAN CORPUSCULAR HGB CONC 34.2 g/dL (32.0-36.0); MEAN CORPUSCULAR VOLUME 104 fl (80-97); MONOCYTES % (AUTO) 7.3 % (3-13); PLATELET COUNT 283 10^3/uL (150-450); RED BLOOD COUNT 4.49 10^6/uL (3.72-5.28); RED CELL DISTRIBUTION WIDTH 17.2 % (11.5-14.0); SEGMENTED NEUTROPHILS % (AUTO) 83.9 % (42-78); TOTAL CELLS COUNTED % (AUTO) 100 %; WHITE BLOOD COUNT 19.8 10^3/uL (4.0-10.5)
[2018-08-01 16:52] LABS: ALANINE AMINOTRANSFERASE 33 U/L (9-52); ALBUMIN 3.6 g/dL (3.5-5.0); ALKALINE PHOSPHATASE 112 U/L (38-126); ANION GAP 11 (5-19); ASPARTATE AMINO TRANSFERASE 49 U/L (14-36); BILIRUBIN,DIRECT 0.4 mg/dL (0.0-0.4); BILIRUBIN,TOTAL 0.7 mg/dL (0.2-1.3); BLOOD UREA NITROGEN 9 mg/dL (7-20); CALCIUM 9.3 mg/dL (8.4-10.2); CARBON DIOXIDE 31 mmol/L (22-30); CHLORIDE 97 mmol/L (98-107); GLUCOSE 75 mg/dL (75-110); LIPASE 182.9 U/L (23-300); POTASSIUM 3.7 mmol/L (3.6-5.0); SODIUM 138.9 mmol/L (137-145); TOTAL PROTEIN 7.1 g/dL (6.3-8.2)
--- NOTE | 2018-08-01 16:57 | RADIOLOGY REPORT (SQ) ---
EXAM DESCRIPTION: CHEST 2 VIEWS COMPLETED DATE/TIME: 08/01/2018 4:40 pm REASON FOR STUDY: paresthesias COMPARISON: None. EXAM PARAMETERS: NUMBER OF VIEWS: two views TECHNIQUE: Digital Frontal and Lateral radiographic views of the chest acquired. RADIATION DOSE: NA LIMITATIONS: none FINDINGS: LUNGS AND PLEURA: No opacities, masses or pneumothorax. No pleural effusion. MEDIASTINUM AND HILAR STRUCTURES: No masses or contour abnormalities. HEART AND VASCULAR STRUCTURES: Heart normal size. No evidence for failure. BONES: No acute findings. HARDWARE: None in the chest. OTHER: No other significant finding. IMPRESSION: NO ACUTE RADIOGRAPHIC FINDING IN THE CHEST. TECHNICAL DOCUMENTATION: JOB ID: [id number]- All Rights Reserved Reading location - IP/workstation name: [email or web address]
[2018-08-01] MEDS ORDERED: CEFTRIAXONE INJ 1000 MG VIAL IV ONE (17:07)
[2018-08-01] MEDS ORDERED: LORAZEPAM INJ 2 MG/1 ML VIAL IV ONE ×2 (17:32→20:30)
[2018-08-01] MEDS ORDERED: RINGERS SOLUTION,LACTATED 1,000 ML IV ONE (17:38)
--- NOTE | 2018-08-01 18:10 | ER Document Report ---
ED General - General Chief Complaint: Abdominal Pain Stated Complaint: ABDOMINAL PAIN, LEG PAIN Time Seen by Provider: 08/01/18 15:52 Mode of Arrival: Ambulatory Information source: Patient Notes: Patient presents complaining of diarrhea for the past 2 days with dysuria for the past 2 days as well. Patient denies any fever. Patient states that she was recently discharged from the hospital 4 days ago after having a low potassium and magnesium level. Patient states she has had diarrhea since being discharged from the hospital. Patient does state that she typically drinks every day although has not had any alcohol for the past 3 days. Patient also reports that she has numbness to bilateral lower extremities. Patient states that she did have this numbness when she was in the hospital but that it is gradually started to increase his states that she has to light touch to the anterior surface only of bilateral lower extremities, stomach and back area. Patient states that she is able to walk although she does have a sensation of numbness to her extremities. Patient states she is able to void without difficulty. Patient does complain of feeling anxious and is worried about her symptoms. Patient denies any nausea vomiting at this time. TRAVEL OUTSIDE OF THE [place] IN LAST 30 DAYS: No - HPI Onset: Other - 4 days Onset/Duration: Worse Quality of pain: Achy Pain Level: 4 Associated symptoms: Diarrhea, Other - UTI symptoms. denies: Chest pain, Nonproductive cough, Productive cough, Fever, Headache, Nausea, Vomiting, Shortness of breath Exacerbated by: Denies Relieved by: Denies Similar symptoms previously: Yes Recently seen / treated by doctor: Yes - Related Data Allergies/Adverse Reactions: lisinopril Allergy (Verified 08/01/18 15:14) Sulfa (Sulfonamide Antibiotics) Allergy (Verified 08/01/18 15:14) Past Medical History - General Information source: Patient - Social History Smoking Status: Current Every Day Smoker Chew tobacco use (# tins/day): No Frequency of alcohol use: Drinks at least 3 alcohol drinks a day last use 3 days ago Drug Abuse: Marijuana Occupation: None Family History: Reviewed & Not Pertinent Patient has suicidal ideation: No Patient has homicidal ideation: No - Past Medical History Cardiac Medical History: Reports: Hx Hypertension Endocrine Medical History: Reports: Hx Hypothyroidism - Va's Renal/ Medical History: Denies: Hx Peritoneal Dialysis GI Medical History: Reports: Hx Gastroesophageal Reflux Disease - Galicia's esophagus, Other - Galicia's esophagus Psychiatric Medical History: Reports: Hx Anxiety, Hx Depression Past Surgical History: Reports: Hx Cholecystectomy Review of Systems - Review of Systems Constitutional: Recent illness - Recently treated for nausea and vomiting. denies: Fever EENT: No symptoms reported Cardiovascular: No symptoms reported. denies: Chest pain, Syncope, Dizziness Respiratory: No symptoms reported. denies: Cough, Short of breath Gastrointestinal: Abdominal pain, Diarrhea. denies: Nausea, Vomiting, Poor appetite Genitourinary: Dysuria, Flank pain Female Genitourinary: No symptoms reported. denies: Vaginal bleeding, Vaginal odor Musculoskeletal: Back pain Skin: No symptoms reported Hematologic/Lymphatic: No symptoms reported Neurological/Psychological: Numbness. denies: Confusion, Loss of power, Lost consciousness Physical Exam - Vital signs Vitals: Temp Pulse Resp BP Pulse Ox 98.6 F 115 H 18 126/87 H 99 08/01/18 15:24 08/01/18 15:24 08/01/18 15:24 08/01/18 15:24 08/01/18 15:24 - General General appearance: Appears well, Alert In distress: None - HEENT Head: Normocephalic, Atraumatic Eyes: Normal Conjunctiva: Normal Nasal: Normal Mouth/Lips: Normal Mucous membranes: Normal Neck: Normal, Supple. No: Lymphadenopathy - Respiratory Respiratory status: No respiratory distress Chest status: Nontender Breath sounds: Normal. No: Rales, Rhonchi, Stridor, Wheezing Chest palpation: Normal - Cardiovascular Rhythm: Tachycardia Heart sounds: S1 appreciated, S2 appreciated Murmur: No - Abdominal Inspection: Obese Distension: No distension Bowel sounds: Normal Tenderness: Tender - Suprapubic Organomegaly: No organomegaly - Back Back: CVA tenderness - Extremities General upper extremity: Normal inspection, Normal ROM General lower extremity: Normal inspection, Normal ROM - Neurological Neuro grossly intact: Yes Cognition: Normal Clark Coma Scale Eye Opening: Spontaneous [place] Coma Scale Verbal: Oriented [place] Coma Scale Motor: Obeys Commands [place] Coma Scale Total: 15 Sensory: Altered light touch - bilat LE and abd - Psychological Associated symptoms: Normal affect, Normal mood - Skin Skin Temperature: Warm Skin Moisture: Dry Skin Color: Normal Course - Re-evaluation Re-evalutation: 08/01/18 18:[address] Bojorquez regarding patient presentation, recommends consultation with hospitalist for admission. Discussed patient's paresthesia symptoms, no concern for Guillian Galvez at this time. Patient does have 2+ of bilateral patellar and Achilles reflexes. No respiratory symptoms at this time. Patient able to ambulate unassisted to the bathroom. Consulted with Dr. Sandoval regarding patient presentation, agrees to accept patient for admission and will be down to evaluate shortly. 08/01/18 18:40 Dr Sandoval in dept to evaluate pt - Vital Signs Vital signs: Temp Pulse Resp BP Pulse Ox 99.8 F 115 H 19 135/105 H 95 08/01/18 20:22 08/01/18 15:24 08/01/18 20:22 08/01/18 20:22 08/01/18 20:22 - Laboratory Result Diagrams: 08/01/18 16:15 08/01/18 16:15 Laboratory results interpreted by me: 08/01/18 08/01/18 08/01/18 15:19 16:15 16:15 WBC 19.8 H Hgb 16.0 H MCV 104 H MCH 35.8 H RDW 17.2 H Seg Neutrophils % 83.9 H Lymphocytes % 8.0 L Absolute Neutrophils 16.6 H Chloride 97 L Carbon Dioxide 31 H Magnesium 1.3 L AST 49 H Urine Protein 100 H Urine Blood MODERATE H Urine Nitrite POSITIVE H Ur Leukocyte Esterase LARGE H 08/01/18 21:46 Labs- Entire Visit 08/01/18 08/01/18 08/01/18 15:19 16:15 16:15 WBC 19.8 H RBC 4.49 Hgb 16.0 H Hct 46.9 MCV 104 H MCH 35.8 H MCHC 34.2 RDW 17.2 H Plt Count 283 Seg Neutrophils % 83.9 H Lymphocytes % 8.0 L Monocytes % 7.3 Eosinophils % 0.5 Basophils % 0.3 Absolute Neutrophils 16.6 H Absolute Lymphocytes 1.6 Absolute Monocytes 1.4 Absolute Eosinophils 0.1 Absolute Basophils 0.1 PT INR VBG pH VBG pCO2 VBG HCO3 VBG Base Excess Sodium 138.9 Potassium 3.7 Chloride 97 L Carbon Dioxide 31 H Anion Gap 11 BUN 9 Creatinine 0.73 Est GFR ( Amer) > 60 Est GFR (Non-Af Amer) > 60 Glucose 75 Lactic Acid Calcium 9.3 Magnesium 1.3 L Total Bilirubin 0.7 Direct Bilirubin 0.4 Neonat Total Bilirubin Not Reportable Neonat Direct Bilirubin Not Reportable Neonat Indirect Bili Not Reportable AST 49 H ALT 33 Alkaline Phosphatase 112 Total Protein 7.1 Albumin 3.6 Lipase 182.9 Vitamin B12 Folate Serum HCG, Qual Urine Color YELLOW Urine Appearance CLOUDY Urine pH 7.0 Ur Specific [place] 1.009 Urine Protein 100 H Urine Glucose (UA) NEGATIVE Urine Ketones NEGATIVE Urine Blood MODERATE H Urine Nitrite POSITIVE H Urine Bilirubin NEGATIVE Urine Urobilinogen NEGATIVE Ur Leukocyte Esterase LARGE H Urine WBC (Auto) >182 Urine RBC (Auto) 15 Urine Bacteria (Auto) 1+ Urine WBC Clumps MANY Amorphous Sediment Auto TRACE Urine Mucus (Auto) FEW Urine Ascorbic Acid NEGATIVE C. difficile Tox (PCR) 08/01/18 08/01/18 08/01/18 16:15 16:15 17:35 WBC RBC Hgb Hct MCV MCH MCHC RDW Plt Count Seg Neutrophils % Lymphocytes % Monocytes % Eosinophils % Basophils % Absolute Neutrophils Absolute Lymphocytes Absolute Monocytes Absolute Eosinophils Absolute Basophils PT 13.0 INR 0.94 VBG pH VBG pCO2 VBG HCO3 VBG Base Excess Sodium Potassium Chloride Carbon Dioxide Anion Gap BUN Creatinine Est GFR ( Amer) Est GFR (Non-Af Amer) Glucose Lactic Acid Calcium Magnesium Total Bilirubin Direct Bilirubin Neonat Total Bilirubin Neonat Direct Bilirubin Neonat Indirect Bili AST ALT Alkaline Phosphatase Total Protein Albumin Lipase Vitamin B12 375.0 Folate > 20.00 Serum HCG, Qual NEGATIVE Urine Color Urine Appearance Urine pH Ur Specific [place] Urine Protein Urine Glucose (UA) Urine Ketones Urine Blood Urine Nitrite Urine Bilirubin Urine Urobilinogen Ur Leukocyte Esterase Urine WBC (Auto) Urine RBC (Auto) Urine Bacteria (Auto) Urine WBC Clumps Amorphous Sediment Auto Urine Mucus (Auto) Urine Ascorbic Acid C. difficile Tox (PCR) 08/01/18 08/01/18 08/01/18 17:35 17:35 20:05 WBC RBC Hgb Hct MCV MCH MCHC RDW Plt Count Seg Neutrophils % Lymphocytes % Monocytes % Eosinophils % Basophils % Absolute Neutrophils Absolute Lymphocytes Absolute Monocytes Absolute Eosinophils Absolute Basophils PT INR VBG pH 7.38 VBG pCO2 50.1 VBG HCO3 29.2 VBG Base Excess 3.1 Sodium Potassium Chloride Carbon Dioxide Anion Gap BUN Creatinine Est GFR ( Amer) Est GFR (Non-Af Amer) Glucose Lactic Acid 0.7 Calcium Magnesium Total Bilirubin Direct Bilirubin Neonat Total Bilirubin Neonat Direct Bilirubin Neonat Indirect Bili AST ALT Alkaline Phosphatase Total Protein Albumin Lipase Vitamin B12 Folate Serum HCG, Qual Urine Color Urine Appearance Urine pH Ur Specific [place] Urine Protein Urine Glucose (UA) Urine Ketones Urine Blood Urine Nitrite Urine Bilirubin Urine Urobilinogen Ur Leukocyte Esterase Urine WBC (Auto) Urine RBC (Auto) Urine Bacteria (Auto) Urine WBC Clumps Amorphous Sediment Auto Urine Mucus (Auto) Urine Ascorbic Acid C. difficile Tox (PCR) NEGATIVE - Diagnostic Test Radiology reviewed: Reports reviewed Discharge - Discharge Clinical Impression: Hypomagnesemia, Anxiety, History of alcohol dependence, Paresthesia UTI (urinary tract infection) Qualifiers: Urinary tract infection type: site unspecified Hematuria presence: with hematuria Qualified Code(s): N39.0 - Urinary tract infection, site not specified Diarrhea Qualifiers: Diarrhea type: unspecified type Qualified Code(s): R19.7 - Diarrhea, unspecified Disposition: ADMITTED INPATIENT Admitting Provider: Hospitalist
[2018-08-01 18:24] LABS: VENOUS BLOOD BASE EXCESS 3.1 mmol/L; VENOUS BLOOD HCO3 29.2 mmol/L (20-32); VENOUS BLOOD PCO2 50.1 mmHg (35-63); VENOUS BLOOD PH 7.38 (7.30-7.42)
[2018-08-01 18:41] LABS: INTERNATIONAL RATION (INR) 0.94
[2018-08-01] MEDS ORDERED: NORMAL SALINE 1000 ML 1,000 ML IV PRN (18:41)
[2018-08-01] MEDS: MAGNESIUM SULFATE/D5W 1 GM/100 ML RTUPB IV SCH ×2 (18:46→19:59)
[2018-08-01] MEDS: ACETAMINOPHEN 325 MG TABLET PO PRN (19:07)
[2018-08-01] MEDS ORDERED: LORAZEPAM INJ 2 MG/1 ML VIAL IV PRN (19:10)
[2018-08-01 19:48] LABS: FOLATE > 20.00 ng/mL (>2.76)
--- NOTE | 2018-08-01 20:40 | PDOC H&P ---
History of Present Illness Patient complains of: diarrhea History of Present Illness: OMAR POWER is a 37 year old female witha a PMH of hypertension, Va 's disease, Galicia's esophagus, GERD who presented with diarrhea and numbness of the feet. Patient was recently admitted here at [facility] after presenting with intractable nausea and vomiting. She was admitted for hypokalemia and hypomagnesemia and was discharged 4 days ago. She says that she did have tingling of her feet when she was here in the recent admission. She says she feels the numbness has involved her legs and thigh in the past few days since she was discharged. She feels generally weak but not particularly on the legs or feet. She says she developed loose, watery diarrhea the other day. She says she had some nausea but not vomiting. She has been having poor intake in the past 2 days. She denies URTI symptoms including cough or colds in the past several weeks. She also reports having dysuria in the past 3 days. She denies fever or chills. She drinks 3 drinks of rhum everyday and has been drinking for several years. She denies history of alcohol withdrawal but says her last drink was 2 days ago. Per ER provider, she had tremulous hands when she came in which promptly resolved with a dose of ativan. She denies SOB. She is able to ambulate well to the ER bathroom without assistance. Past Medical History Cardiac Medical History: Reports: Hypertension Endocrine Medical History: Reports: Hypothyroidism - Va's GI Medical History: Reports: Gastroesophageal Reflux Disease - Galicia's esophagus Psychiatric Medical History: Reports: Depression Past Surgical History Past Surgical History: Reports: Cholecystectomy Social History Smoking Status: Current Every Day Smoker Frequency of Alcohol Use: Heavy - 3 glasses of rum a day Hx Recreational Drug Use: Yes Drugs: Marijuana, Other - Urine drug screen positive for methadone Hx Prescription Drug Abuse: No Family History Family History: Reviewed & Not Pertinent Parental Family History Reviewed: Yes - no premature CAD Children Family History Reviewed: No Sibling(s) Family History Reviewed.: No Medication/Allergy Home Medications: Levothyroxine Sodium [Levoxyl] 112 mcg PO Q6AM 07/26/18 Lorazepam [Ativan 1 mg Tablet] 1 mg PO Q8HP PRN 07/26/18 Losartan Potassium [Cozaar 100 mg Tablet] 100 mg PO DAILY 07/26/18 Ondansetron HCl [Zofran 4 mg Tablet] 4 mg PO Q8 07/26/18 Venlafaxine HCl [Venlafaxine HCl ER] 150 mg PO DAILY 07/26/18 Allergies/Adverse Reactions: lisinopril Allergy (Verified 08/01/18 15:14) Sulfa (Sulfonamide Antibiotics) Allergy (Verified 08/01/18 15:14) Review of Systems All systems: reviewed and no additional remarkable complaints except as stated - as mentioned in HPI Physical Exam Vital Signs: Temp Pulse Resp BP Pulse Ox 98.6 F 115 H 18 126/87 H 99 08/01/18 15:24 08/01/18 15:24 08/01/18 15:24 08/01/18 15:24 08/01/18 15:24 Intake & Output 07/31/18 08/01/18 08/02/18 06:59 06:59 06:59 Intake Total 1000 Balance 1000 Weight 160 lb 14.999 oz General appearance: PRESENT: no acute distress, well-developed, well-nourished Head exam: PRESENT: atraumatic, normocephalic Eye exam: PRESENT: conjunctiva pink, EOMI, PERRLA. ABSENT: scleral icterus Ear exam: PRESENT: normal external ear exam Mouth exam: PRESENT: moist, tongue midline Neck exam: ABSENT: carotid bruit, JVD, lymphadenopathy, thyromegaly Respiratory exam: PRESENT: clear to auscultation adelaida. ABSENT: rales, rhonchi, wheezes Cardiovascular exam: PRESENT: RRR. ABSENT: diastolic murmur, rubs, systolic murmur Pulses: PRESENT: normal dorsalis pedis pul GI/Abdominal exam: PRESENT: normal bowel sounds, soft. ABSENT: distended, guarding, mass, organolmegaly, rebound, tenderness Rectal exam: PRESENT: deferred Neurological exam: PRESENT: alert, awake, oriented to person, oriented to place , oriented to time, oriented to situation, CN II-XII grossly intact. ABSENT: motor sensory deficit Results Laboratory Results: 08/01/18 16:15 08/01/18 16:15 08/01/18 08/01/18 08/01/18 15:19 16:15 16:15 WBC 19.8 H RBC 4.49 Hgb 16.0 H Hct 46.9 MCV 104 H MCH 35.8 H MCHC 34.2 RDW 17.2 H Plt Count 283 Seg Neutrophils % 83.9 H Lymphocytes % 8.0 L Monocytes % 7.3 Eosinophils % 0.5 Basophils % 0.3 Absolute Neutrophils 16.6 H Absolute Lymphocytes 1.6 Absolute Monocytes 1.4 Absolute Eosinophils 0.1 Absolute Basophils 0.1 VBG pH VBG pCO2 VBG HCO3 VBG Base Excess Sodium 138.9 Potassium 3.7 Chloride 97 L Carbon Dioxide 31 H Anion Gap 11 BUN 9 Creatinine 0.73 Est GFR ( Amer) > 60 Est GFR (Non-Af Amer) > 60 Glucose 75 Calcium 9.3 Magnesium 1.3 L Total Bilirubin 0.7 AST 49 H ALT 33 Alkaline Phosphatase 112 Total Protein 7.1 Albumin 3.6 Lipase 182.9 Urine Color YELLOW Urine Appearance CLOUDY Urine pH 7.0 Ur Specific [place] 1.009 Urine Protein 100 H Urine Glucose (UA) NEGATIVE Urine Ketones NEGATIVE Urine Blood MODERATE H Urine Nitrite POSITIVE H Ur Leukocyte Esterase LARGE H Urine WBC (Auto) >182 Urine RBC (Auto) 15 08/01/18 17:35 WBC RBC Hgb Hct MCV MCH MCHC RDW Plt Count Seg Neutrophils % Lymphocytes % Monocytes % Eosinophils % Basophils % Absolute Neutrophils Absolute Lymphocytes Absolute Monocytes Absolute Eosinophils Absolute Basophils VBG pH 7.38 VBG pCO2 50.1 VBG HCO3 29.2 VBG Base Excess 3.1 Sodium Potassium Chloride Carbon Dioxide Anion Gap BUN Creatinine Est GFR ( Amer) Est GFR (Non-Af Amer) Glucose Calcium Magnesium Total Bilirubin AST ALT Alkaline Phosphatase Total Protein Albumin Lipase Urine Color Urine Appearance Urine pH Ur Specific [place] Urine Protein Urine Glucose (UA) Urine Ketones Urine Blood Urine Nitrite Ur Leukocyte Esterase Urine WBC (Auto) Urine RBC (Auto) Impressions: Chest X-Ray 08/01/18 15:57 IMPRESSION: NO ACUTE RADIOGRAPHIC FINDING IN THE CHEST. Assessment & Plan - Diagnosis (1) Hypomagnesemia Is this a current diagnosis for this admission?: Yes Plan: Currently being replaced in the ER. Will recheck Magnesium tonight after replacement. (2) UTI (urinary tract infection) Qualifiers: Urinary tract infection type: site unspecified Hematuria presence: with hematuria Qualified Code(s): N39.0 - Urinary tract infection, site not specified; R31.9 - Hematuria, unspecified; R31.9 - Hematuria, unspecified Is this a current diagnosis for this admission?: Yes Plan: Patient does have dysuria and UA is consistent with UTI. She has been started on Rocephin in the ER. Will continue Rocephin. (3) Paresthesia Is this a current diagnosis for this admission?: Yes Plan: Patient is complaining of numbness and tingling sensation on the feet. On neuro exam, she has intact sensation to sharp and blunt stimuli. She has normal DTRs with intact motor strength. She is able to ambulate well without assistance when she went to the ER bathroom. In the setting of acute diarrhea and significant hypomagnesemia, her paresthesia is deemed likely metabolic in origin as hypomagnesemia can present with paresthesias as well. If she has persistent symptoms even with repletion of electrolyte deficiency, will re- evaluate for Guillain [place] although this is currently not high on the differential. (4) Alcohol use disorder Is this a current diagnosis for this admission?: Yes Plan: Will start patient on banana bag. Patient is a chronic alcohol drinker with last drink 2 days ago. Will also start at 1 mg of ativan q6h prn for now. (5) Substance abuse Is this a current diagnosis for this admission?: Yes Plan: UDS is positive for cocaine. Patient says she uses marijuana but denies using cocaine. - Time Time Spent: 30 to 50 Minutes
[2018-08-01] MEDS ORDERED: THIAMINE HCL 100 MG, FOLIC ACID 1 MG in NORMAL SALINE 250 ML IV SCH (20:45)
--- NOTE | 2018-08-01 21:07 | EKG REPORT ---
SEVERITY:- BORDERLINE ECG - SINUS TACHYCARDIA PROBABLE LEFT ATRIAL ABNORMALITY : Confirmed by: Mary Nobles MD 01-Aug-2018 21:06:36
[2018-08-01] MEDS ORDERED: NORMAL SALINE 1000 ML 1,000 ML with POTASSIUM CHLORIDE 20 MEQ, MAGNESIUM SULFATE 8 MEQ,... IV SCH ×5 (21:30)
[2018-08-01] MEDS: FOLIC ACID 1 MG TABLET PO SCH (22:07)
[2018-08-01] MEDS: HEPARIN SOD (PORCINE) 5,000 UNIT/ML 1 ML SYRINGE SUBCUT SCH (22:07)
[2018-08-02 05:47] LABS: ABSOLUTE BASOPHILS # (AUTO) 0.1 10^3/uL (0.0-0.2); ABSOLUTE EOSINOPHILS # (AUTO) 0.1 10^3/uL (0.0-0.6); ABSOLUTE LYMPHOCYTES (AUTO) 1.5 10^3/uL (0.5-4.7); ABSOLUTE MONOCYTES (AUTO) 0.7 10^3/uL (0.1-1.4); ABSOLUTE NEUT (AUTO) 13.6 10^3/uL (1.7-8.2); BASOPHILS % (AUTO) 0.4 % (0-2); EOSINOPHILS % (AUTO) 0.7 % (0-6); HEMATOCRIT 42.1 % (36.0-47.0); HEMOGLOBIN 14.3 g/dL (12.0-15.5); LYMPHOCYTES % (AUTO) 9.6 % (13-45); MEAN CORPUSCULAR HEMOGLOBIN 35.3 pg (27.0-33.4); MEAN CORPUSCULAR VOLUME 104 fl (80-97); MONOCYTES % (AUTO) 4.1 % (3-13); PLATELET COUNT 238 10^3/uL (150-450); RED BLOOD COUNT 4.06 10^6/uL (3.72-5.28); SEGMENTED NEUTROPHILS % (AUTO) 85.2 % (42-78); TOTAL CELLS COUNTED % (AUTO) 100 %
[2018-08-02 06:02] LABS: ANION GAP 11 (5-19); BLOOD UREA NITROGEN 8 mg/dL (7-20); CALCIUM 8.9 mg/dL (8.4-10.2); CARBON DIOXIDE 24 mmol/L (22-30); CHLORIDE 102 mmol/L (98-107); GLUCOSE 80 mg/dL (75-110); POTASSIUM 4.5 mmol/L (3.6-5.0); SODIUM 137.4 mmol/L (137-145)
[2018-08-02] MEDS: ACETAMINOPHEN 325 MG TABLET PO PRN ×2 (08:18→16:59)
[2018-08-02] MEDS ORDERED: CEFTRIAXONE SODIUM 1,000 MG in DEXTROSE 5%-WATER 50 ML IV SCH (10:00)
[2018-08-02] MEDS ORDERED: CEFTRIAXONE 1 GM/D5W RTU 1 GM/50 ML RTUPB IV SCH (10:00)
[2018-08-02] MEDS: FOLIC ACID 1 MG TABLET PO SCH (10:25)
[2018-08-02] MEDS: HEPARIN SOD (PORCINE) 5,000 UNIT/ML 1 ML SYRINGE SUBCUT SCH (10:25)
--- NOTE | 2018-08-02 11:19 | RADIOLOGY REPORT (SQ) ---
EXAM DESCRIPTION: CT HEAD WITHOUT COMPLETED DATE/TIME: 08/02/2018 10:55 am REASON FOR STUDY: paresthesias and weakness COMPARISON: None. TECHNIQUE: Axial images acquired through the brain without intravenous contrast. Images reviewed wi th bone, brain and subdural windows. Additional sagittal and coronal reconstructions were generated. Images stored on PACS. All CT scanners at this facility use dose modulation, iterative reconstruction, and/or weight based d osing when appropriate to reduce radiation dose to as low as reasonably achievable (ALARA). [facility]: Dose Right [facility]: CareDose [facility]: Dose Right [facility]: Teradose 4D [facility]: Smart Cloud[employer] RADIATION DOSE: CT Rad equipment meets quality standard of care and radiation dose reduction techniq ues were employed. CTDIvol: 48.6 mGy. DLP: 905 mGy-cm. mGy. LIMITATIONS: None. FINDINGS: VENTRICLES: Normal size and contour. CEREBRUM: No masses. No hemorrhage. No midline shift. No evidence for acute infarction. Normal gra y/white matter differentiation. No areas of low density in the white matter. CEREBELLUM: No masses. No hemorrhage. No alteration of density. No evidence for acute infarction. EXTRAAXIAL SPACES: No fluid collections. No masses. ORBITS AND GLOBE: No intra- or extraconal masses. Normal contour of globe without masses. CALVARIUM: No fracture. PARANASAL SINUSES: No fluid or mucosal thickening. SOFT TISSUES: No mass or hematoma. OTHER: No other significant finding. IMPRESSION: NORMAL BRAIN CT WITHOUT CONTRAST. EVIDENCE OF ACUTE STROKE: NO. COMMENT: Quality ID # [id number]: Final reports with documentation of one or more dose reduction techniques (e.g., Automated exposure control, adjustment of the mA and/or kV according to patient size, use of iterative reconstruction technique) TECHNICAL DOCUMENTATION: JOB ID: [id number] [employer]- All Rights Reserved Reading location - IP/workstation name: [email or web address]
--- NOTE | 2018-08-02 12:48 | PDOC TRANSFER SUMMARY ---
General Admission Date/PCP: 08/01/18 18:45 - Transfer Diagnosis (1) Lower extremity weakness Is this a current diagnosis for this admission?: Yes (2) Hypomagnesemia Is this a current diagnosis for this admission?: Yes (3) UTI (urinary tract infection) Is this a current diagnosis for this admission?: Yes (4) Paresthesia Is this a current diagnosis for this admission?: Yes (5) Alcohol use disorder Is this a current diagnosis for this admission?: Yes (6) Substance abuse Is this a current diagnosis for this admission?: Yes - Transfer Medications Home Medications: Levothyroxine Sodium [Levoxyl] 112 mcg PO Q6AM 07/26/18 Lorazepam [Ativan 1 mg Tablet] 1 mg PO Q8HP PRN 07/26/18 Losartan Potassium [Cozaar 100 mg Tablet] 100 mg PO DAILY 07/26/18 Ondansetron HCl [Zofran 4 mg Tablet] 4 mg PO Q8 07/26/18 Venlafaxine HCl [Venlafaxine HCl ER] 150 mg PO DAILY 07/26/18 Transfer Medications: Current Medications Acetaminophen (Tylenol 325 Mg Tablet) 650 mg PO Q6HP PRN PRN Reason: for pain Stop: 08/31/18 18:41 Last Admin: 08/02/18 08:18 Dose: 650 mg Folic Acid (Folvite 1 Mg Tablet) 1 mg PO DAILY [facility] Stop: 08/31/18 21:59 Last Admin: 08/02/18 10:25 Dose: 1 mg Heparin Sodium (Porcine) (Heparin Inj 5,000 Units/Ml 1 Ml Syringe) 5,000 unit SUBCUT Q12 CARLO Stop: 08/31/18 21:59 Last Admin: 08/02/18 10:25 Dose: 5,000 unit Sodium Chloride (Nacl 0.9% 1000 Ml Iv Soln) 1,000 mls @ 125 mls/hr IV CONTINUOUS PRN PRN Reason: THIS MED IS NOT "PRN" Stop: 08/31/18 18:40 Last Infusion: 08/01/18 23:43 Dose: Infused Potassium Chloride 20 meq/Magnesium Sulfate 8 meq/Thiamine HCl 100 mg/ Multivitamins/Minerals 10 ml/Sodium Chloride 1,023 mls @ 75 mls/hr IV QPM CARLO Stop: 08/31/18 21:29 Last Admin: 08/01/18 22:07 Dose: 75 mls/hr Ceftriaxone Sodium 1,000 mg/ (Dextrose) 50 mls @ 100 mls/hr IV DAILY [facility] Stop: 08/09/18 09:59 Lorazepam (Ativan Inj 2 Mg/1 Ml Vial) 1 mg IV Q6HP PRN PRN Reason: ANXIETY/AGITATION Stop: 08/08/18 19:09 Last Admin: 08/02/18 03:57 Dose: 1 mg - Allergies Allergies/Adverse Reactions: lisinopril Allergy (Verified 08/01/18 15:14) Sulfa (Sulfonamide Antibiotics) Allergy (Verified 08/01/18 15:14) Hospital Course Hospital Course: Admitting hospitalist's H&P: OMAR POWER is a 37 year old female witha a PMH of hypertension, history of Va's disease, Galicia's esophagus, and GERD who presented with diarrhea and numbness of the feet. Patient was recently admitted here a week ago at [facility] after presenting with intractable nausea and vomiting and vague abdominal pain. She was admitted for hypokalemia and hypomagnesemia and was discharged. She says that she did have tingling of her feet when she was here in the recent admission and this continued to worsen in the next few days. She says she feels the numbness has involved her legs and thigh in the past 3-4 days and that she felt her feet and legs were becoming weak too. She also has paresthesias reporting "pins and needles" sensation on both feet upon walking. She says she never had these symptoms before. She says she developed loose, watery diarrhea 2 days ago. She says she had some nausea but not vomiting. She has been having poor intake in the past 2 days. She denies dysphagia or diplopia or vision problems. She drinks 3 drinks of rhum everyday and has been drinking for several years. She denies history of alcohol withdrawal but says her last drink was 2 days ago. Her Magnesium was slightly low at 1.3. This was replaced and corrected but patient denies any relief from her paresthesias, numbness and leg weakness. On neuro exam, she has 4/5 motor strength on knee and ankle flexion, impaired sensation on the lower extremities to sharp stimuli, with DTRs being 2+. Vital capacity this morning was 3L. She had watery stools but C diff was negative. She is a chronic alcohol drinker but the acuity of her neurologic symptoms goes against alcoholic neuropathy. With her neurologic symptoms and findings, an acute demyelinating disease needs to be ruled out. As NCV and EMG testing and neuro service are not available here , patient will need transfer to tertiary facility. Discussed with receiving house staff officer, Dr. Castaneda/Dr. Farr at [facility] who has accepted the transfer. Physical Exam Vital Signs: Temp Pulse Resp BP Pulse Ox 98.0 F 98 16 132/96 H 99 08/02/18 11:37 08/02/18 11:37 08/02/18 11:37 08/02/18 11:59 08/02/18 11:37 Intake & Output 08/01/18 08/02/18 08/03/18 06:59 06:59 06:59 Intake Total 2200 Balance 2200 Weight 172 lb 6.424 oz General appearance: PRESENT: no acute distress, well-developed, well-nourished Head exam: PRESENT: atraumatic, normocephalic Eye exam: PRESENT: conjunctiva pink, EOMI, PERRLA. ABSENT: scleral icterus Ear exam: PRESENT: normal external ear exam Mouth exam: PRESENT: moist, tongue midline Neck exam: ABSENT: carotid bruit, JVD, lymphadenopathy, thyromegaly Respiratory exam: PRESENT: clear to auscultation adelaida. ABSENT: rales, rhonchi, wheezes Cardiovascular exam: PRESENT: RRR. ABSENT: diastolic murmur, rubs, systolic murmur Pulses: PRESENT: normal dorsalis pedis pul GI/Abdominal exam: PRESENT: normal bowel sounds, soft. ABSENT: distended, guarding, mass, organolmegaly, rebound, tenderness Rectal exam: PRESENT: deferred Neurological exam: PRESENT: alert, awake, oriented to person, oriented to place , oriented to time, oriented to situation, CN II-XII grossly intact, motor sensory deficit - 4/5 motor strength on knee and ankle flexion, impaired sensation on the lower extremities to sharp stimuli, DTRs 2+ Results Laboratory Results: 08/02/18 05:13 08/02/18 05:13 08/01/18 08/02/18 08/02/18 21:55 05:13 05:13 WBC 16.0 H RBC 4.06 Hgb 14.3 Hct 42.1 MCV 104 H MCH 35.3 H MCHC 34.0 RDW 17.0 H Plt Count 238 Seg Neutrophils % 85.2 H Lymphocytes % 9.6 L Monocytes % 4.1 Eosinophils % 0.7 Basophils % 0.4 Absolute Neutrophils 13.6 H Absolute Lymphocytes 1.5 Absolute Monocytes 0.7 Absolute Eosinophils 0.1 Absolute Basophils 0.1 Sodium 137.4 Potassium 4.5 Chloride 102 Carbon Dioxide 24 Anion Gap 11 BUN 8 Creatinine 0.56 Est GFR ( Amer) > 60 Est GFR (Non-Af Amer) > 60 Glucose 80 Calcium 8.9 Magnesium 2.0 Impressions: Chest X-Ray 08/01/18 15:57 IMPRESSION: NO ACUTE RADIOGRAPHIC FINDING IN THE CHEST. Head CT 08/02/18 08:18 IMPRESSION: NORMAL BRAIN CT WITHOUT CONTRAST. EVIDENCE OF ACUTE STROKE: NO.
[2018-08-02] MEDS ORDERED: GABAPENTIN 300 MG CAPSULE PO ONE (14:30)
[2018-08-02 16:18] VITALS: BP 134/96
== END 2018-08-02 17:00 | disposition short-term general hospital (02) ==
LOC: ER 15:13 → EH 18:45 → 4N 21:23
PROVIDERS: ADMIT Internal Medicine; ATTEND Internal Medicine
DX: R53.1 Weakness (principal); E83.42 Hypomagnesemia; N39.0 Urinary tract infection, site not specified; R31.9 Hematuria, unspecified; R20.2 Paresthesia of skin; F10.20 Alcohol dependence, uncomplicated; F14.10 Cocaine abuse, uncomplicated; F12.10 Cannabis abuse, uncomplicated; F17.200 Nicotine dependence, unspecified, uncomplicated; R10.9 Unspecified abdominal pain; M54.9 Dorsalgia, unspecified; R00.0 Tachycardia, unspecified; E66.9 Obesity, unspecified; R20.0 Anesthesia of skin; R19.7 Diarrhea, unspecified; E06.3 Autoimmune thyroiditis; R25.1 Tremor, unspecified; K22.70 Barrett's esophagus without dysplasia; Z90.49 Acquired absence of other specified parts of digestive tract; Z87.19 Personal history of other diseases of the digestive system
CPT/HCPCS: 93005; 36415 ×2; 87040; 87045; 87086; 87205; 82607; 82746; 83690; 83735; 84703; 85025 ×2; 85610; 87088; 80048; 80053; 81001; 87186; 87493; 82803; 83605; 71046; 70450; 93010; G0378 ×3; J1644 ×2; J3475 ×2; J2060 ×2; J3480; J0696 ×2; J3411; J2405; J7030; J7120; J3490

== ENCOUNTER 2018-09-12 13:55 | Emergency (ER) | payer SELFPAY ==
[2018-09-12 15:16] VITALS: BP 148/100
--- NOTE | 2018-09-12 15:21 | ER Document Report ---
ED Medical Screen (RME) - General Chief Complaint: Pain All Over Stated Complaint: BODY PAIN Time Seen by Provider: 09/12/18 15:08 Notes: Patient is here requesting a refill of her gabapentin prescription for pain, enough to last until she sees her doctor next week. 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 She has residual pain in both of her legs and numbness from the breast downward to her toes. She is able to walk with a walker. She is only requesting 800 mg of gabapentin, #25 to take 3 times a day. She has an appointment with her doctor on September 18. TRAVEL OUTSIDE OF THE [place] IN LAST 30 DAYS: No - Related Data Allergies/Adverse Reactions: lisinopril Allergy (Verified 08/01/18 15:14) Sulfa (Sulfonamide Antibiotics) Allergy (Verified 08/01/18 15:14) Past Medical History - Social History Chew tobacco use (# tins/day): No Frequency of alcohol use: Occasional Drug Abuse: Marijuana Family history: Reviewed & Not Pertinent - Past Medical History Cardiac Medical History: Reports: Hx Hypertension Endocrine Medical History: Reports: Hx Hypothyroidism - Va's GI Medical History: Reports: Hx Gastroesophageal Reflux Disease - Galicia's esophagus Psychiatric Medical History: Reports: Hx Anxiety, Hx Depression Past Surgical History: Reports: Hx Cholecystectomy Review of Systems - Review of Systems Notes: CONSTITUTIONAL : Denies fever. CARDIOVASCULAR: Denies chest pain. RESPIRATORY: Denies cough, chest congestion, or shortness of breath. GASTROINTESTINAL: Denies abdominal pain or nausea, vomiting, or diarrhea. GENITOURINARY: Denies difficulty or painful urinating, urinary frequency, blood in urine. Physical Exam - Vital signs Vitals: Temp Pulse Resp BP Pulse Ox 99.0 F 114 H 18 132/99 H 99 09/12/18 14:02 09/12/18 14:02 09/12/18 14:02 09/12/18 14:02 09/12/18 14:02 Interpretation: Normal, Tachycardic - Mild Notes: PHYSICAL EXAMINATION: GENERAL: Well-appearing, no acute distress. HEAD: Atraumatic, normocephalic. NECK: Normal range of motion, supple. LUNGS: Breath sounds clear and equal bilaterally. HEART: Regular rate and rhythm without murmurs heard. Heart rate about 100 at the bedside by me. ABDOMEN: Soft, nontender. No guarding or rebound or masses felt. Course - Re-evaluation Re-evalutation: 09/12/18 20:54 Patient had no other requests so I agreed to prescribe her sufficient gabapentin to last until she sees her doctor next week. - Vital Signs Vital signs: Temp Pulse Resp BP Pulse Ox 98.0 F 105 H 18 148/100 H 97 09/12/18 15:15 09/12/18 15:15 09/12/18 15:15 09/12/18 15:15 09/12/18 15:15 Doctor's Discharge - Discharge Clinical Impression: Guyon Galvez syndrome, Bilateral leg pain Condition: Stable Disposition: HOME, SELF-CARE Additional Instructions: Guyon Galvez syndrome You are having bilateral leg pain, apparently secondary to your Guyon Galvez syndrome. I have written you a prescription for 8-day supply of gabapentin. Hopefully that should hold until you see your doctor for an appointment on September 18. FOLLOW-UP CARE: If you have been referred to a physician for follow-up care, call the physicians office for an appointment as you were instructed or within the next two days. If you experience worsening or a significant change in your symptoms, notify the physician immediately or return to the Emergency Department at any time for re-evaluation. Prescriptions: Gabapentin 800 mg PO TID #25 tablet
== END 2018-09-12 15:16 | disposition home or self-care (01) ==
LOC: ER 13:55
DX: G61.0 Guillain-Barre syndrome (principal); Z76.0 Encounter for issue of repeat prescription; M79.604 Pain in right leg; M79.605 Pain in left leg; R20.0 Anesthesia of skin; Z88.8 Allergy status to other drugs, medicaments and biological substances; Z88.2 Allergy status to sulfonamides; I10 Essential (primary) hypertension
CPT/HCPCS: 99283